=== PATIENT | male | born 1990 | race Caucasian/White ===

== ENCOUNTER 2020-03-27 16:39 | Emergency (ER) | payer OTHER ==
[~2020-03-27] VITALS: Ht 185.4 cm; Wt 81.7 kg
[2020-03-27] MEDS ORDERED: KEFLEX500 M1 PO (17:21)
[2020-03-27] MEDS ORDERED: NORCO 5-325 TA1 EAC1 PO (17:21)
[2020-03-27 17:36] VITALS: BP 117/79
== END 2020-03-27 17:36 | disposition home or self-care (01) ==
LOC: M.ERS 16:39
DX: S61.511A Laceration without foreign body of right wrist, initial encounter (principal); E11.9 Type 2 diabetes mellitus without complications; W25.XXXA Contact with sharp glass, initial encounter; Y93.89 Activity, other specified; Y92.89 Other specified places as the place of occurrence of the external cause; Y99.8 Other external cause status

== ENCOUNTER 2020-09-30 12:53 | Emergency (ER) | payer OTHER ==
[~2020-09-30] VITALS: Ht 185.4 cm; Wt 85.7 kg
[~2020-09-30 12:53] MED LIST: KEFLEX500 M1 PO; NORCO 5-325 TA1 EAC1 PO
[2020-09-30 14:42] LABS: ABSOLUTE BASOPHILS 0.1 thou/uL (0.0-0.2); ABSOLUTE EOSINOPHILS 0.1 thou/uL (0.0-0.7); ABSOLUTE LYMPHOCYTES 1.2 thou/uL (0.8-5.3); ABSOLUTE MONOCYTES 0.8 thou/uL (0.0-1.2); BASOPHILS 0.5 %; EOSINOPHILS 0.8 %; HEMATOCRIT 50.2 % (42.0-52.0); HEMOGLOBIN 16.6 gm/dL (14.0-18.0); LYMPHOCYTES 10.9 %; MCH 30.5 pg (26.0-34.0); MCHC 33.1 g/dL (28.0-37.0); MCV 92.1 fL (80.0-100.0); MONOCYTES 7.6 %; MPV 7.4 fl. (7.2-11.1); NUCLEATED RBCS 0 /100WBC; PLATELET COUNT* 269 thou/uL (150-400); POLYS 80.2 %; RBC 5.45 mil/uL (4.50-6.00); RDW-CV 13.8 % (10.5-14.5); WBC 11.2 thou/uL (4.0-11.0)
[2020-09-30 14:48] LABS: URINE BILIRUBIN NEGATIVE (Negative); URINE BLOOD 1+ (Negative); URINE CLARITY CLEAR; URINE COLOR YELLOW; URINE GLUCOSE-RANDOM NEGATIVE (Negative); URINE KETONES NEGATIVE (Negative); URINE LEUKOCYTES-REFLEX NEGATIVE (Negative); URINE NITRITE-REFLEX NEGATIVE (Negative); URINE PROTEIN NEGATIVE (Negative); URINE SPECIFIC GRAVITY 1.015 (1.005-1.030); URINE UROBILINOGEN 0.2 E.U./dl (0.2-1.0)
[2020-09-30 14:59] LABS: ALBUMIN 4.7 g/dL (3.4-5.0); CALCIUM 9.1 mg/dL (8.5-10.1); POTASSIUM 3.7 mmol/L (3.5-5.1); TOTAL BILIRUBIN 0.5 mg/dL (<0.1-1.0); TOTAL PROTEIN 8.8 g/dL (6.4-8.2)
[2020-09-30 15:17] LABS: AMP/METHAMP Negative (Negative); BACTERIA-REFLEX 1-9 Few /HPF (None Seen); BARBITURATES Negative (Negative); BENZODIAZEPINES Negative (Negative); CASTS None Seen /LPF (None Seen); COCAINE Negative (Negative); CRYSTALS None Seen /LPF (None Seen); METHADONE Negative (Negative); OPIATES Negative (Negative); PCP Negative (Negative); SQUAMOUS 0-3 Few /LPF (0-3); THC POSITIVE (Negative); URINE RBC 0-2 Rare /HPF (0-2); URINE WBC-REFLEX 0-5 Rare /HPF (0-5)
--- NOTE | 2020-09-30 16:16 | EKG ---
[place] [address] ELECTROCARDIOGRAM REPORT Name: ALICIA LEE Room: [facility]#: [id number] Admission: 09/30/20 Attend Phys: Discharge: Date of : 88 Date of Service: 09/30/20 1438 Report #: [id number] THIS REPORT FOR: //name// [facility] ED Test Date: 2020-09-30 Test Time: 14:38:04 Pat Name: ALICIA LEE Department: Room: Gender: Sales Planning Coordinator: [facility] : 1990 Requested By: Mamta Cuellar Order Number: [id number] : Jonathan Hu Measurements Intervals [place] Rate: 61 P: 66 NH: 130 QRS: 66 QRSD: 81 T: 58 QT: 394 QTc: 397 Interpretive Statements Sinus rhythm Probable left atrial enlargement No previous ECG available for comparison Electronically Signed On 09-30-2020 16:16:41 SENSITIZER by Jonathan Hu [email or web address] <ELECTRONICALLY SIGNED> By: Jonathan Hu MD, [facility] 09/30/20 1616 1438 1438 Jonathan Hu MD, FACC /EPI
[2020-09-30] MEDS ORDERED: BENTYL 20 MG TA20 M1 PO ×2 (16:21→16:34)
[2020-09-30] MEDS ORDERED: PHENERGAN 25 MG25 M1 PO (16:21)
[2020-09-30] MEDS ORDERED: ONDANSETRON HCL4 M2 PO (16:34)
[2020-09-30 16:48] VITALS: BP 120/75
== END 2020-09-30 16:48 | disposition home or self-care (01) ==
LOC: M.ERS 12:53
PROVIDERS: Nurse Practitioner Family
DX: R11.2 Nausea with vomiting, unspecified (principal); R10.84 Generalized abdominal pain; Z20.828 Contact with and (suspected) exposure to other viral communicable diseases; E11.9 Type 2 diabetes mellitus without complications; Z86.39 Personal history of other endocrine, nutritional and metabolic disease; Z88.6 Allergy status to analgesic agent; Z79.899 Other long term (current) drug therapy